=== PATIENT | male | born 1940 | race Hispanic/Latino ===

== ENCOUNTER 2018-02-22 00:15 | Observation (INO) | payer MEDICARE ==
[~2018-02-22] VITALS: Ht 180.3 cm; Wt 81.4 kg
[~2018-02-22 00:15] MED LIST: TYLENOL WITH C1 EACH PO
[2018-02-22] MEDS ORDERED: LOSARTAN-HCTZ1 EAC1 PO (00:30)
[2018-02-22] MEDS ORDERED: XARELTO20 MG PO (00:30)
[2018-02-22 01:01] LABS: BASOPHILS % 0.8 % (0.0-1.0); EOSINOPHILS # (AUTO) 0.2 (0.0-0.4); EOSINOPHILS % 3.2 % (0.0-6.0); LYMPHOCYTES % 18.5 % (18.0-39.1); MEAN CORPUSCULAR HEMOGLOBIN 31.5 pg (28-32); MEAN CORPUSCULAR HGB CONC 34.4 g/dL (31-35); MEAN CORPUSCULAR VOLUME 91.7 fL (81-99); MONOCYTES # (AUTO) 0.7 (0.2-0.8); MONOCYTES % 13.2 % (4.4-11.3); NEUTROPHILS # (AUTO) 3.4 (2.1-6.9); NEUTROPHILS % 63.5 % (38.7-80.0); PLATELET COUNT 170 x10e3/uL (140-360); RED BLOOD COUNT 3.49 x10e6/uL (4.3-5.7); RED CELL DISTRIBUTION WIDTH 12.3 % (11.7-14.4)
[2018-02-22 01:06] LABS: INR 1.45; PROTHROMBIN TIME 16.6 seconds (11.9-14.5)
[2018-02-22 01:07] LABS: PARTIAL THROMBOPLASTIN TIME 44.3 seconds (23.8-35.5)
[2018-02-22 01:16] LABS: ALBUMIN 3.2 g/dL (3.5-5.0); ANION GAP 12.5 mmol/L (8-16); CALCIUM 8.8 mg/dL (8.4-10.2); CREATININE, SERUM 1.58 mg/dL (0.72-1.25); MAGNESIUM 2.2 MG/DL (1.3-2.1); POTASSIUM 3.5 mmol/L (3.5-5.1)
--- NOTE | 2018-02-22 02:57 | Diagnostic Imaging Report ---
CHEST SINGLE (PORTABLE), 02/22/2018 12:26 AM Technique: CHEST SINGLE (PORTABLE) Comparison: 02/22/2017. Clinical history: \S\RLE EDEMA \[id number] \S\[id number] Findings: Cardiomediastinal silhouette within normal limits for portable technique. Mild right basilar opacity. No significant effusion. The left costophrenic angle is excluded. Impression: 1. Mild right basilar opacity which may reflect atelectasis or scarring. Recommend follow-up upright PA and lateral. 2. Radiopaque density overlying the left upper quadrant which may be external or congested. Signed by: Dr Urszula Mills MD on 02/22/2018 2:53 AM
--- NOTE | 2018-02-22 02:58 | Diagnostic Imaging Report ---
LOWER LEG RIGHT Comparison: None Clinical history: \S\RLE EDEMA \[id number] \S\[id number] Findings: Chronic appearing stress related or post traumatic changes of the posterior tibia. Chronic well-corticated ossicle along the tibial tubercle. No acute fracture or dislocation. Mild diffuse soft tissue swelling. Impression: No acute bony abnormality Signed by: Dr Urszula Mills MD on 02/22/2018 2:55 AM
[2018-02-22] MEDS ORDERED: VANCOMYCIN 1GM/NS 250 ML 250 ML IV ONE (03:00)
[2018-02-22 03:06] LABS: BILIRUBIN,URINE NEGATIVE (NEGATIVE); CLARITY,URINE CLEAR (CLEAR); COLOR,URINE YELLOW (YELLOW); KETONES,URINE NEGATIVE (NEGATIVE); LEUKOCYTE ESTERASE ,URINE NEGATIVE (NEGATIVE); NITRITE,URINE NEGATIVE (NEGATIVE); PROTEIN,URINE DIPSTICK NEGATIVE (NEGATIVE); URINE UROBILINOGEN 0.2 mg/dL (0.2 - 1)
[2018-02-22 03:07] LABS: BACTERIA,URINE RARE /HPF; EPITHELIAL CELLS,URINE RARE /LPF
[2018-02-22] MEDS ORDERED: ONDANSETRON HCL INJ 2 MG/ML VIAL IV PRN (03:15)
[2018-02-22] MEDS: PIPER-TAZ 3.375 GM 50 ML IV SCH ×3 (03:16→17:00)
[2018-02-22 04:00] VITALS: BP 136/68
[2018-02-22 04:14] VITALS: BP 149/79
[2018-02-22] MEDS ORDERED: SODIUM CHLORIDE 0.45% 1,000 ML IV ONE (07:15)
[2018-02-22 07:45] VITALS: BP 134/65
[2018-02-22 07:56] LABS: BASOPHILS % 0.6 % (0.0-1.0); EOSINOPHILS # (AUTO) 0.2 (0.0-0.4); HEMATOCRIT 30.5 % (38.2-49.6); HEMOGLOBIN 10.5 g/dL (14.0-18.0); LYMPHOCYTES # (AUTO) 1.1 (1.0-3.2); MEAN CORPUSCULAR HEMOGLOBIN 31.5 pg (28-32); MEAN CORPUSCULAR HGB CONC 34.4 g/dL (31-35); MEAN CORPUSCULAR VOLUME 91.6 fL (81-99); MONOCYTES # (AUTO) 0.7 (0.2-0.8); MONOCYTES % 12.9 % (4.4-11.3); NEUTROPHILS % 60.1 % (38.7-80.0); PLATELET COUNT 150 x10e3/uL (140-360); RED BLOOD COUNT 3.33 x10e6/uL (4.3-5.7); RED CELL DISTRIBUTION WIDTH 12.3 % (11.7-14.4)
--- NOTE | 2018-02-22 08:02 | History and Physical ---
PRIMARY CARE PHYSICIAN: Dr. Kb Garcia CHIEF COMPLAINT: Right foreleg swelling and pain. HISTORY OF PRESENT ILLNESS: This is a 77-year-old man with a history of right leg DVT in 2017 and left pulmonary embolism in 2017 maintained on Xarelto. Now, sustained an injury to his right lower foreleg after box fell on his leg while at work about 3 weeks ago. Symptoms have not improved. Continued swelling and discomfort. Therefore, he came to the hospital. Here ultrasound was performed, which was negative for DVT. The patient is now admitted for further evaluation and management. PAST MEDICAL HISTORY: Hypertension, left pulmonary embolism in 2017, right leg DVT in 2017, on Xarelto. Family denies Xarelto. PAST SURGICAL HISTORY: None. ALLERGIES: PER ELECTRONIC MEDICAL RECORD. FAMILY HISTORY/SOCIAL HISTORY: Patient is . Has one child. No alcohol, illicits or cigarettes. Works in maintenance at [email or web address]. MEDICATIONS: Per electronic medical record. REVIEW OF SYSTEMS: Denies any dizziness, chest pain, shortness of breath, fever, chills, sweats, nausea, vomiting, diarrhea, headache, blurred vision. PHYSICAL EXAMINATION VITAL SIGNS: Reviewed. GENERAL: A tired-appearing man resting in bed. HEENT: Anicteric. Pupils respond to light. No oral lesions. CARDIOVASCULAR: Normal S1 and S2. LUNGS: Moderate breath sounds. ABDOMEN: Soft, nontender and nondistended. EXTREMITIES: No edema or calf tenderness on the left leg. On the right leg, he has 1-2+ leg edema. He has a site on the right leg lateral border in the lower foreleg which is tender on deep palpation. There is mild skin changes noted at bedside. The overall right foreleg has mild hyperemia versus erythema, which is mild. There is no skin breakdown. There is no fluctuance at the point site where there is tenderness on the right leg lateral border. There is no induration at that site. SKIN: Dry. PSYCHIATRIC: Flat affect. NEUROLOGICAL: Alert and oriented times 3. Moves all extremities. LABS: Reviewed. MEDICATIONS: Reviewed. ASSESSMENT: This is a 77-year-old man with: 1. Acute kidney injury. 2. Right foreleg cellulitis. 3. Right foreleg pain. 4. Normocytic anemia. 5. Sinus bradycardia. 6. History of venous thromboembolism. 7. History of pulmonary embolism. PLAN 1. Will first rehydrate the patient and then attempt to perform the CT scan with contrast. We will re-evaluate his renal function later today. 2. Continue IV Zosyn. He received vancomycin. Will use clindamycin for his renal function. 3. Will hold Xarelto. Will use Lovenox treatment dose b.i.d. in the meantime as he may require incision and drainage of that site. 4. Will also hold the hydrochlorothiazide and losartan. 5. Will use Pepcid for GI prophylaxis. 6. Consult surgery if incision and drainage is needed. Will await CT scan. 7. Follow up cultures. 8. Physical therapy consultation as the patient has had some ambulatory dysfunction due to pain of the right leg. Job#: [id number] HERNANDO
[2018-02-22 08:19] LABS: CREATINE KINASE MB 1.8 ng/mL (0-5.0)
[2018-02-22 08:26] LABS: ALBUMIN 2.9 g/dL (3.5-5.0); ANION GAP 12.6 mmol/L (8-16); CALCIUM 8.4 mg/dL (8.4-10.2); CREATININE, SERUM 1.34 mg/dL (0.72-1.25); POTASSIUM 3.6 mmol/L (3.5-5.1)
[2018-02-22] MEDS: ENOXAPARIN INJ 80 MG/0.8 ML SYR SC SCH ×2 (08:55→20:44)
[2018-02-22 11:16] VITALS: BP 140/64
[2018-02-22] MEDS: CLINDAMYCIN 300MG 50 ML IV SCH ×2 (13:01→20:44)
[2018-02-22] MEDS: HYDROCODONE/APAP 7.5MG-325MG 1 EA TAB PO PRN ×2 (13:15→20:55)
[2018-02-22 15:09] VITALS: BP 140/63
[2018-02-22 15:33] LABS: ANION GAP 12.7 mmol/L (8-16); CALCIUM 8.5 mg/dL (8.4-10.2); CREATININE, SERUM 1.22 mg/dL (0.72-1.25); POTASSIUM 3.7 mmol/L (3.5-5.1)
[2018-02-22 20:00] VITALS: BP 161/72
--- NOTE | 2018-02-22 20:06 | Diagnostic Imaging Report ---
CT scan of the RIGHT Leg, WITHOUT injected contrast. TECHNIQUE: Standard departmental protocols were used. Sagittal and coronal reformatted images were obtained. HISTORY: Cellulitis of the right foot. Redness and swelling lateral side of the right lower leg after boxes fell on patient 2 weeks ago. The injury has continued to worsen. COMPARISON: Plain radiographs of the right leg from 02/22/2018 FINDINGS: Bones: Osseous projection arising from the posterior aspect of the tibial diaphysis may represent osteochondroma or change related to old trauma. 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 No acute fracture or dislocation. No radiographic evidence of osteomyelitis. Mild degenerative changes of the right knee with small loose bodies within the joint. Soft Tissues: There is diffuse subcutaneous edema throughout the right leg. No evidence of abscess. Mild atherosclerotic calcification of the visualized arteries without significant stenosis. IMPRESSION: Diffuse subcutaneous edema throughout the right leg, consistent with cellulitis. No evidence of abscess. No evidence of osteomyelitis. Signed by: Dr. Dami Quarles M.D. on 02/22/2018 8:02 PM
[2018-02-22 20:09] LABS: CREATINE KINASE MB 1.3 ng/mL (0-5.0)
[2018-02-22] MEDS ORDERED: SODIUM CHLORIDE 0.9% 250ML 250 ML ONE (20:29)
[2018-02-22] MEDS ORDERED: SODIUM CHLORIDE 0.9% 50ML 50 ML ONE (22:15)
[2018-02-22] MEDS ORDERED: IOPAMIDOL 370 MG/ML 200 ML INFUS..BTL INJ ONE (22:16)
[2018-02-23] VITALS: BP 116/55
[2018-02-23] MEDS: CLINDAMYCIN 300MG 50 ML IV SCH (05:54)
[2018-02-23] MEDS: PIPER-TAZ 3.375 GM 50 ML IV SCH ×2 (06:28)
[2018-02-23] MEDS ORDERED: PROBIOTIC & AC1 EACH PO (06:52)
[2018-02-23] MEDS ORDERED: CIPRO500 MG PO (06:52)
[2018-02-23] MEDS ORDERED: TYLENOL WITH C1 EACH PO (06:52)
[2018-02-23] MEDS ORDERED: MINOCYCLINE HCL50 MG PO (06:52)
[2018-02-23 07:43] VITALS: BP 122/58
[2018-02-23] MEDS: ENOXAPARIN INJ 80 MG/0.8 ML SYR SC SCH (08:15)
--- NOTE | 2018-02-23 08:39 | Discharge Summary ---
PRINCIPAL DIAGNOSES 1. Acute kidney injury. 2. Right foreleg cellulitis. 3. Right foreleg pain. 4. Normocytic anemia. 5. Sinus bradycardia. SECONDARY DIAGNOSIS: History of venous thromboembolism. CHIEF COMPLAINT: Right foreleg swelling and pain. HISTORY OF PRESENT ILLNESS: This is a 77-year-old man evaluated for leg swelling and pain. Please refer to the H and P for further details. HOSPITAL COURSE: The patient was found to have cellulitis of the right foreleg. A CT scan was performed, which was negative for any abscess or fluid collection at this site. His renal function has been improving. He is doing better. He was on Zosyn and clindamycin. He received a dose of vancomycin. He will go home with minocycline and Cipro. DISCHARGE MEDICATIONS: Per electronic medical record with Cipro and minocycline. FOLLOWUP: With primary care doctor in 1 week. CONDITION: Stable and improving. DISCHARGE LOCATION: Home. ALEXANDER HILL MD Job#: [id number]
== END 2018-02-23 08:51 | disposition home or self-care (01) ==
LOC: ER 00:15 → ERHOLD 03:22 → IMCU 03:48
PROVIDERS: ADMIT Internal Medicine; ATTEND Internal Medicine
DX: L03.115 Cellulitis of right lower limb (principal); N17.9 Acute kidney failure, unspecified; I10 Essential (primary) hypertension; Z86.718 Personal history of other venous thrombosis and embolism; Z79.01 Long term (current) use of anticoagulants; Z82.49 Family history of ischemic heart disease and other diseases of the circulatory system; S80.11XA Contusion of right lower leg, initial encounter; Z86.711 Personal history of pulmonary embolism; D64.9 Anemia, unspecified; R00.1 Bradycardia, unspecified
CPT/HCPCS: 36415; 71045; 73590; 73701; 80048; 80053; 81001; 82550; 82553; 83036; 83605; 83735; 84484; 85025; 85610; 85651; 85730; 87040; 87086; 93005; 93971; 99284; G0378 ×2; J1650 ×2; J2405; J2543 ×2; J3370; J7050; Q9967

== ENCOUNTER 2020-10-29 05:19 | Inpatient (IN) | payer MEDICARE ==
[2020-10-28 08:38] LABS: BASOPHILS % 0.6 % (0.0-1.0); EOSINOPHILS # (AUTO) 0.2 (0.0-0.4); EOSINOPHILS % 3.8 % (0.0-6.0); HEMATOCRIT 38.3 % (38.2-49.6); HEMOGLOBIN 13.4 g/dL (14.0-18.0); LYMPHOCYTES # (AUTO) 1.2 (1.0-3.2); LYMPHOCYTES % 24.2 % (18.0-39.1); MEAN CORPUSCULAR HEMOGLOBIN 31.5 pg (28-32); MEAN CORPUSCULAR VOLUME 89.9 fL (81-99); MONOCYTES # (AUTO) 0.6 (0.2-0.8); MONOCYTES % 12.4 % (4.4-11.3); NEUTROPHILS # (AUTO) 2.9 (2.1-6.9); NEUTROPHILS % 58.6 % (38.7-80.0); PLATELET COUNT 147 x10e3/uL (140-360); RED BLOOD COUNT 4.26 x10e6/uL (4.3-5.7); RED CELL DISTRIBUTION WIDTH 12.2 % (11.7-14.4)
[2020-10-28 08:56] LABS: ANION GAP 12.8 mmol/L (8-16); BLOOD UREA NITROGEN 19 mg/dL (7-26); BUN/CREATININE RATIO 17 (6-25); CARBON DIOXIDE 25 mmol/L (22-29); CHLORIDE 107 mmol/L (98-107); CREATININE, SERUM 1.14 mg/dL (0.72-1.25); EST GLOMERULAR FILTRATION RATE > 60 ML/MIN (60-); GLUCOSE 99 mg/dL (74-118); POTASSIUM 3.8 mmol/L (3.5-5.1); SODIUM 141 mmol/L (136-145)
[~2020-10-29] VITALS: Ht 180.3 cm; Wt 76.7 kg
[~2020-10-29 05:19] MED LIST changes: +CIPRO500 MG PO; +FLOMAX0.4 MG PO; +LOSARTAN POTAS100 MG PO; +LOSARTAN-HCTZ1 EAC1 PO; +MINOCYCLINE HCL50 MG PO; +PROBIOTIC & AC1 EACH PO; +XARELTO20 MG PO
[2020-10-29] MEDS ORDERED: GENTAMICIN 80MG/NS 100 ML 200 ML IV ONE (06:07)
[2020-10-29] MEDS ORDERED: VANCOMYCIN 1GM/NS 250 ML 250 ML ONE (06:07)
[2020-10-29] MEDS ORDERED: SODIUM CHLORIDE 0.9% 1000ML 1,000 ML ONE (06:08)
[2020-10-29] MEDS ORDERED: B&O 60MG R/S 60 MG SUPP PR ONE (06:31)
[2020-10-29] MEDS ORDERED: IOPAMIDOL 300MG/ML 50ML INFUS..BTL IV ONE (06:31)
[2020-10-29] MEDS ORDERED: B&O 60MG R/S 60 MG SUPP PR PRN (09:15)
[2020-10-29] MEDS ORDERED: ONDANSETRON HCL INJ 2MG/ML 2ML 2 MG/ML VIAL IV PRN (09:15)
[2020-10-29] MEDS ORDERED: ACETAMINOPHEN/CODEINE 300MG - 30MG TAB PO PRN (09:15)
[2020-10-29] MEDS ORDERED: D5.45%NS/KCL 20MEQ 1,000 ML IV SCH (09:15)
[2020-10-29] MEDS ORDERED: DIPHENHYDRAMINE HCL 25 MG CAP PO PRN (09:15)
[2020-10-29 09:44] LABS: BASOPHILS % 0.7 % (0.0-1.0); EOSINOPHILS # (AUTO) 0.1 (0.0-0.4); HEMATOCRIT 34.5 % (38.2-49.6); HEMOGLOBIN 11.7 g/dL (14.0-18.0); LYMPHOCYTES # (AUTO) 1.1 (1.0-3.2); LYMPHOCYTES % 24.7 % (18.0-39.1); MEAN CORPUSCULAR HEMOGLOBIN 31.6 pg (28-32); MEAN CORPUSCULAR HGB CONC 33.9 g/dL (31-35); MEAN CORPUSCULAR VOLUME 93.2 fL (81-99); MONOCYTES # (AUTO) 0.2 (0.2-0.8); MONOCYTES % 5.6 % (4.4-11.3); NEUTROPHILS # (AUTO) 2.8 (2.1-6.9); NEUTROPHILS % 65.5 % (38.7-80.0); PLATELET COUNT 139 x10e3/uL (140-360); RED CELL DISTRIBUTION WIDTH 12.2 % (11.7-14.4)
[2020-10-29 09:58] LABS: ANION GAP 11.1 mmol/L (8-16); CALCIUM 7.6 mg/dL (8.4-10.2); CREATININE, SERUM 1.17 mg/dL (0.72-1.25); POTASSIUM 4.1 mmol/L (3.5-5.1)
[2020-10-29] MEDS ORDERED: POVIDONE IODINE 0.05% 0.05 % ML PO ONE (13:43)
[2020-10-29] MEDS ORDERED: ONDANSETRON HCL INJ 2MG/ML 2ML 2 MG/ML VIAL ONE (13:43)
[2020-10-29] MEDS ORDERED: PROPOFOL IV EMULSION 10 MG/ML 20 ML VIAL ONE (13:43)
[2020-10-29] MEDS ORDERED: DEXAMETHASONE SOD PHOS INJ 4 MG/ML VIAL ONE (13:43)
[2020-10-29] MEDS ORDERED: EPHEDRINE SULFATE INJ 50 MG/ML VIAL ONE (13:43)
[2020-10-29] MEDS ORDERED: SEVOFLURANE INHAL SOLN 250 ML PEN BTL ONE (13:43)
[2020-10-29] MEDS ORDERED: LIDOCAINE HCL 2% LOCAL INJ 5 ML SDV VIAL INJ ONE (13:43)
[2020-10-29 13:56] VITALS: BP 173/79
[2020-10-29 13:57] VITALS: BP 148/81
[2020-10-29] MEDS: GENTAMICIN 80MG/NS 100 ML 100 ML IV SCH ×2 (14:00→21:06)
[2020-10-29 14:15] VITALS: BP 179/83
[2020-10-29] MEDS: PHENAZOPYRIDINE HCL 100 MG TAB PO PRN (14:49)
[2020-10-29 15:22] VITALS: BP 179/64
[2020-10-29] MEDS ORDERED: HYDRALAZINE HCL 20 MG/ML VIAL IV PRN (15:45)
[2020-10-29] MEDS ORDERED: SODIUM CHLORIDE 0.45% 1,000 ML IV SCH (15:45)
[2020-10-29] MEDS ORDERED: AMLODIPINE BESYLATE 10 MG TAB PO ONE (16:00)
[2020-10-29] MEDS: DOCUSATE SODIUM 100 MG CAP PO SCH (17:33)
[2020-10-29 20:00] VITALS: BP 151/69
[2020-10-29] MEDS: SODIUM BICARBONATE 8.4% 50 ML in SODIUM CHLORIDE 0.45% 1,000 ML IV SCH (20:16)
[2020-10-29 21:06] VITALS: BP 151/69
[2020-10-30] VITALS (8 sets, daily range): BP systolic 134–169; BP diastolic 58–88
[2020-10-30 04:37] LABS: BASOPHILS % 0.1 % (0.0-1.0); EOSINOPHILS % 0.2 % (0.0-6.0); HEMATOCRIT 35.2 % (38.2-49.6); HEMOGLOBIN 12.7 g/dL (14.0-18.0); LYMPHOCYTES # (AUTO) 0.9 (1.0-3.2); LYMPHOCYTES % 11.1 % (18.0-39.1); MEAN CORPUSCULAR HEMOGLOBIN 31.8 pg (28-32); MEAN CORPUSCULAR HGB CONC 36.1 g/dL (31-35); MEAN CORPUSCULAR VOLUME 88.2 fL (81-99); MONOCYTES # (AUTO) 0.7 (0.2-0.8); MONOCYTES % 8.4 % (4.4-11.3); NEUTROPHILS # (AUTO) 6.5 (2.1-6.9); NEUTROPHILS % 79.8 % (38.7-80.0); PLATELET COUNT 159 x10e3/uL (140-360); RED BLOOD COUNT 3.99 x10e6/uL (4.3-5.7); RED CELL DISTRIBUTION WIDTH 11.9 % (11.7-14.4)
[2020-10-30] MEDS: SODIUM BICARBONATE 8.4% 50 ML in SODIUM CHLORIDE 0.45% 1,000 ML IV SCH ×2 (05:08→08:12)
[2020-10-30] MEDS: GENTAMICIN 80MG/NS 100 ML 100 ML IV SCH (05:08)
[2020-10-30 05:19] LABS: BLOOD UREA NITROGEN 21 mg/dL (7-26); BUN/CREATININE RATIO 18 (6-25); CALCIUM 7.6 mg/dL (8.4-10.2); CARBON DIOXIDE 21 mmol/L (22-29); CHLORIDE 109 mmol/L (98-107); CREATININE, SERUM 1.14 mg/dL (0.72-1.25); EST GLOMERULAR FILTRATION RATE > 60 ML/MIN (60-); GLUCOSE 118 mg/dL (74-118); SODIUM 136 mmol/L (136-145)
[2020-10-30] MEDS: LOSARTAN POTASSIUM 100 MG TAB PO SCH (09:00)
[2020-10-30] MEDS: AMLODIPINE BESYLATE 10 MG TAB PO SCH (09:00)
[2020-10-30] MEDS: DOCUSATE SODIUM 100 MG CAP PO SCH ×2 (09:00→17:00)
[2020-10-30] MEDS ORDERED: CEFTAZIDIME 1 GM VIAL IV SCH (09:00)
[2020-10-30] MEDS: SODIUM CHLORIDE 0.9% 1000ML 1,000 ML IV SCH ×2 (09:00→21:28)
[2020-10-30] MEDS: CEFTAZIDIME IV SCH ×3 (09:04→21:32)
[2020-10-30] MEDS: SODIUM CHLORIDE 0.9% IV SCH ×3 (09:04→21:32)
[2020-10-30] MEDS: PHENAZOPYRIDINE HCL 100 MG TAB PO PRN (09:17)
[2020-10-31] VITALS (7 sets, daily range): BP systolic 133–151; BP diastolic 57–89
[2020-10-31 05:11] LABS: BASOPHILS % 0.4 % (0.0-1.0); EOSINOPHILS # (AUTO) 0.1 (0.0-0.4); EOSINOPHILS % 1.2 % (0.0-6.0); HEMATOCRIT 33.9 % (38.2-49.6); HEMOGLOBIN 11.6 g/dL (14.0-18.0); LYMPHOCYTES # (AUTO) 1.2 (1.0-3.2); LYMPHOCYTES % 17.7 % (18.0-39.1); MEAN CORPUSCULAR HEMOGLOBIN 31.3 pg (28-32); MEAN CORPUSCULAR HGB CONC 34.2 g/dL (31-35); MEAN CORPUSCULAR VOLUME 91.4 fL (81-99); MONOCYTES # (AUTO) 0.8 (0.2-0.8); MONOCYTES % 11.3 % (4.4-11.3); NEUTROPHILS # (AUTO) 4.7 (2.1-6.9); PLATELET COUNT 134 x10e3/uL (140-360); RED BLOOD COUNT 3.71 x10e6/uL (4.3-5.7); RED CELL DISTRIBUTION WIDTH 12.3 % (11.7-14.4)
[2020-10-31 05:29] LABS: ANION GAP 8.7 mmol/L (8-16); CALCIUM 7.7 mg/dL (8.4-10.2); CREATININE, SERUM 1.22 mg/dL (0.72-1.25); POTASSIUM 3.7 mmol/L (3.5-5.1)
[2020-10-31] MEDS ORDERED: ONDANSETRON HCL 4 MG ORAL DISINTEGRATING TAB PO PRN (07:45)
[2020-10-31] MEDS: DOCUSATE SODIUM 100 MG CAP PO SCH ×2 (09:28→17:00)
[2020-10-31] MEDS: CEFTAZIDIME IV SCH (09:28)
[2020-10-31] MEDS: LOSARTAN POTASSIUM 100 MG TAB PO SCH (09:28)
[2020-10-31] MEDS: SODIUM CHLORIDE 0.9% IV SCH (09:28)
[2020-10-31] MEDS: AMLODIPINE BESYLATE 10 MG TAB PO SCH (09:29)
[2020-11-03] MEDS ORDERED: RIVAROXABAN 20 MG TABLET PO SCH (09:00)
== END 2020-11-01 08:52 | disposition home or self-care (01) | DRG 713 ==
LOC: OR 05:19 → PACU V 09:07 → MED/SURG 13:07
PROVIDERS: ADMIT Internal Medicine; ATTEND Internal Medicine
PROC: BT141ZZ Fluoroscopy of Kidneys, Ureters and Bladder using Low Osmolar Contrast (ICD-10-PCS; 2020-10-29)
PROC: 0VB08ZZ Excision of Prostate, Via Natural or Artificial Opening Endoscopic (ICD-10-PCS; principal; 2020-10-29 07:00)
PROC: 0T788ZZ Dilation of Bilateral Ureters, Via Natural or Artificial Opening Endoscopic (ICD-10-PCS; 2020-10-29 07:00)
DX: N40.1 Benign prostatic hyperplasia with lower urinary tract symptoms (principal); N39.0 Urinary tract infection, site not specified; N13.8 Other obstructive and reflux uropathy; R31.9 Hematuria, unspecified; Z20.822 Contact with and (suspected) exposure to COVID-19; E78.5 Hyperlipidemia, unspecified; I25.10 Atherosclerotic heart disease of native coronary artery without angina pectoris; R33.8 Other retention of urine; Z86.718 Personal history of other venous thrombosis and embolism; N41.1 Chronic prostatitis
CPT/HCPCS: 36415; 71046; 74420; 80048; 83735; 85025; 93005; C1758; J0713; J1100; J1580; J2001; J2405; J3370; J7030; U0002

== ENCOUNTER 2022-03-27 13:30 | Emergency (ER) | payer MEDICARE ==
[~2022-03-27] VITALS: Ht 180.3 cm; Wt 76.7 kg
[2022-03-27] MEDS ORDERED: SODIUM CHLORIDE 0.9% 500ML 500 ML IV ONE (15:00)
[2022-03-27 15:04] LABS: BASOPHILS % 0.5 % (0.0-1.0); EOSINOPHILS % 0.2 % (0.0-6.0); RED CELL DISTRIBUTION WIDTH 12.5 % (11.7-14.4)
[2022-03-27 15:43] LABS: HEMATOCRIT 43.3 % (38.2-49.6); HEMOGLOBIN 14.7 g/dL (14.0-18.0); MEAN CORPUSCULAR HEMOGLOBIN 32.2 pg (28-32); MEAN CORPUSCULAR HGB CONC 33.9 g/dL (31-35); RED BLOOD COUNT 4.56 x10e6/uL (4.3-5.7)
[2022-03-27 15:44] LABS: LYMPHOCYTES # (AUTO) 0.4 (1.0-3.2); LYMPHOCYTES % 4.4 % (18.0-39.1); MONOCYTES # (AUTO) 0.6 (0.2-0.8); MONOCYTES % 5.8 % (4.4-11.3); NEUTROPHILS # (AUTO) 8.5 (2.1-6.9); NEUTROPHILS % 89.2 % (38.7-80.0); PLATELET COUNT 135 x10e3/uL (140-360)
[2022-03-27 15:48] LABS: INR 0.99; PARTIAL THROMBOPLASTIN TIME 31.7 seconds (23.8-35.5)
[2022-03-27 15:54] LABS: ANION GAP 16.6 mmol/L (8-16); CREATININE, SERUM 1.43 mg/dL (0.72-1.25); MAGNESIUM 2.2 MG/DL (1.3-2.1); POTASSIUM 3.6 mmol/L (3.5-5.1)
[2022-03-27 16:01] LABS: CREATINE KINASE MB 4.3 ng/mL (0-5.0)
[2022-03-27 16:25] LABS: ALBUMIN 3.9 g/dL (3.5-5.0); ALBUMIN/GLOBULIN RATIO 1.1 (0.8-2.0)
[2022-03-27] MEDS ORDERED: ACETAMINOPHEN 325 MG TAB PO ONE (16:30)
[2022-03-27] MEDS ORDERED: ACETAMINOPHEN 1000 MG/100 ML IV STA (16:34)
[2022-03-27] MEDS ORDERED: ACETAMINOPHEN 1000 MG/100 ML 100 ML IV ONE (16:43)
[2022-03-27 16:50] LABS: BAND NEUTROPHILS % (MANUAL) 7 %; LYMPHOCYTES % (MANUAL) 5 % (19-48); MONOCYTES % (MANUAL) 6 % (3.4-9.0); NEUTROPHILS % (MANUAL) 82 % (40-74); PLATELET ESTIMATE ADEQUATE; PLATELET MORPHOLOGY COMMENT NORMAL; RBC MORPHOLOGY COMMENT NORMAL
[2022-03-27 17:57] LABS: CLARITY,URINE HAZY (CLEAR); COLOR,URINE YELLOW (YELLOW)
[2022-03-27 17:58] LABS: BACTERIA,URINE FEW /HPF; EPITHELIAL CELLS,URINE FEW /LPF; KETONES,URINE NEGATIVE (NEGATIVE); LEUKOCYTE ESTERASE ,URINE NEGATIVE (NEGATIVE); NITRITE,URINE NEGATIVE (NEGATIVE); PROTEIN,URINE DIPSTICK 1+ (NEGATIVE); RBC,URINE 0-5 /HPF (0-5); URINE UROBILINOGEN 0.2 mg/dL (0.2 - 1); WBC,URINE (MAN) 0-5 /HPF (0-5)
[2022-03-27] MEDS ORDERED: DICYCLOMINE HCL20 MG PO (19:09)
[2022-03-29] MEDS ORDERED: DICYCLOMINE HCL20 MG PO (14:03)
== END 2022-03-27 19:28 | disposition home or self-care (01) ==
LOC: ER 14:50
DX: R53.1 Weakness (principal); R19.7 Diarrhea, unspecified; I10 Essential (primary) hypertension; Z20.822 Contact with and (suspected) exposure to COVID-19; R94.31 Abnormal electrocardiogram [ECG] [EKG]; Z86.718 Personal history of other venous thrombosis and embolism
CPT/HCPCS: 0223U; 36415; 70450; 71045; 80053; 81001; 82550; 82553; 83735; 83880; 84484; 85025; 85610; 85651; 85730; 87086; 93005; 99284; J0131; J7040